=== PATIENT | female | born 1975 | race Two or more races ===

== ENCOUNTER → 2017-06-23 | Outpatient (CLI) | payer OTHER ==
[~2017-06-23] MED LIST: ASCO10004 PO; CHOL10002 PO; FERR325T18 PO; GLIP5TAB10 PO; LISI2.5T PO; METF500T4 PO; None per pt; SIME125C77 PO
[2017-06-23 09:31] LABS: ASPARTATE AMINO TRANSFERASE 40 U/L (15-37); BLOOD UREA NITROGEN 12 mg/dL (7-18)
== END | disposition home or self-care (01) ==
LOC: STAR 08:21
PROVIDERS: ATTEND Obstetrics & Gynecology Female Pelvic Medicine and Reconstructive Surgery
DX: Z01.818 Encounter for other preprocedural examination (principal); N39.3 Stress incontinence (female) (male); N94.6 Dysmenorrhea, unspecified; N81.10 Cystocele, unspecified
CPT/HCPCS: 36415; 80053; 93005

== ENCOUNTER 2017-06-28 10:45 | Day surgery (SDC) | payer OTHER ==
[~2017-06-28] VITALS: Ht 172.7 cm; Wt 87.3 kg
[~2017-06-28 10:45] MED LIST changes: +BUPIVACAINE/PF 0.25% ONE; +EPINEPHRINE 1 MG/ML, 1ML ONE; +NEOMY/POLYMYXIN B GU IRR. 1 ML IRRIG ONE
[2017-06-28] MEDS ORDERED: LACTATED RINGERS 1,000 ML IV SCH (11:13)
[2017-06-28 11:18] VITALS: BP 124/79
[2017-06-28] MEDS ORDERED: FENTANYL PF 250 MCG/5ML ONE (12:46)
[2017-06-28] MEDS ORDERED: MIDAZOLAM 1 MG/ML, 2ML ONE ×2 (12:46→14:15)
[2017-06-28] MEDS ORDERED: ONDANSETRON 2MG/ML, 2ML ONE ×2 (13:44→14:38)
[2017-06-28] MEDS ORDERED: SUCCINYLCHOLINE 20 MG/ML, 10ML ONE (13:44)
[2017-06-28] MEDS ORDERED: PROPOFOL 10 MG/ML, 20ML ONE (13:44)
[2017-06-28] MEDS ORDERED: DEXAMETHASONE 4 MG/ML, 1ML ONE (13:44)
[2017-06-28] MEDS ORDERED: CEFAZOLIN 1,000 MG ONE (13:44)
[2017-06-28] MEDS ORDERED: NEOSTIGMINE 1 MG/ML, 10ML ONE (13:44)
[2017-06-28] MEDS ORDERED: GLYCOPYRROLATE 0.2MG/1ML, 5ML ONE (13:44)
[2017-06-28] MEDS ORDERED: ROCURONIUM 10MG/ML,5ML ONE (13:44)
[2017-06-28] MEDS ORDERED: MEPERIDINE/PF 25MG/0.5ML IVPush PRN (14:00)
[2017-06-28] MEDS ORDERED: PROMETHAZINE 25 MG/ML, 1ML IV PRN (14:00)
[2017-06-28] MEDS ORDERED: ACETAMINOPHEN 325 MG TABLET PO PRN (14:00)
[2017-06-28] MEDS ORDERED: OXYcodone 5 MG/5 ML ORAL.SOL UDC PO PRN (14:00)
[2017-06-28] MEDS ORDERED: ALBUTEROL SULFATE 2.5 MG/3 ML NPPB PRN (14:00)
[2017-06-28] MEDS ORDERED: METOPROLOL 1 MG/ML, 5ML IV PRN (14:00)
[2017-06-28] MEDS ORDERED: hydrALAzine 20 MG/ML, 1ML IV PRN (14:00)
[2017-06-28] MEDS ORDERED: MIDAZOLAM 1 MG/ML, 2ML IV PRN (14:00)
[2017-06-28] MEDS ORDERED: FENTANYL PF 100 MCG/2ML ONE (14:15)
[2017-06-28] MEDS: FENTANYL PF 100 MCG/2ML IV PRN ×2 (14:24→14:30)
[2017-06-28] MEDS ORDERED: ACETAMINOPHEN 650 MG/20.3 ML UDC ONE (14:32)
[2017-06-28] MEDS ORDERED: OXYcodone 5 MG/5 ML ORAL.SOL UDC ONE (14:32)
[2017-06-28] MEDS ORDERED: KETOROLAC 30 MG/1 ML ONE (14:52)
[2017-06-28] MEDS ORDERED: HYDROmorphone 2 MG/ML, 1ML ONE (15:00)
[2017-06-28] MEDS ORDERED: KETOROLAC 30 MG/1 ML IVPush PRN (15:00)
[2017-06-28] MEDS ORDERED: ONDANSETRON 2MG/ML, 2ML IVPush ONE (15:00)
[2017-06-28] MEDS: HYDROmorphone 1 MG/ML, 1ML IV PRN ×2 (15:03→15:25)
[2017-06-28] MEDS ORDERED: ONDANSETRON 2MG/ML, 2ML IVPush PRN (17:30)
== END 2017-06-28 17:40 ==
LOC: OUT 10:45
PROVIDERS: ATTEND Obstetrics & Gynecology Female Pelvic Medicine and Reconstructive Surgery
DX: N39.3 Stress incontinence (female) (male) (principal); N81.89 Other female genital prolapse; N94.10 Unspecified dyspareunia; K46.9 Unspecified abdominal hernia without obstruction or gangrene; I10 Essential (primary) hypertension; E11.9 Type 2 diabetes mellitus without complications; Z98.890 Other specified postprocedural states
CPT/HCPCS: 57265; 57282; 57288; 82962; C1771; J0171; J0690; J1100; J1170; J1885; J2250; J2405; J2704; J2710; J3010; J3490; J7120; J0330